=== PATIENT | male | born 1940 | race African-American/Black ===

== ENCOUNTER 2024-09-03 05:50 | Inpatient (IN) | payer OTHER ==
[2024-09-03] VITALS (10 sets, daily range): BP systolic 131–168; BP diastolic 53–104; PULSE 70–80; RESP 12–22; TEMP 36.2–36.418; O2SAT 97–100
[~2024-09-03] VITALS: Ht 177.8 cm; Wt 79.8 kg
[2024-09-03] MEDS ORDERED: ALBUTEROL (0.083%) 2.5MG/3ML NEB HHN STA (06:01)
[2024-09-03 06:28] LABS: BG BASE EXCESS 6.8 mmol/L (-2.0-3.0); BG CARBOXYHEMOGLOBIN 1.1 % (0.5-1.5); BG DEOXYHEMOGLOBIN 2.3 % (0.0-5.0); BG FRACTION INSPIRED OXYGEN 30; BG HCO3 ACT 32.5 mmol/L (21.0-28.0); BG METHEMOGLOBIN 0.3 % (0.5-1.5); BG OXYGEN SATURATION 97.7 % (94.0-98.0); BG OXYHEMOGLOBIN 96.3 % (94.0-98.0); BG PCO2 53.5 mmHg (35.0-48.0); BG PH 7.402 (7.350-7.450); BG PO2 102.9 mmHg (83.0-108.0); BG SAMPLE SITE RIGHT RADIAL; BG TOTAL HEMOGLOBIN 9.4 g/dL (13.5-17.5); BG VENT MODE MASK - BIPAP
[2024-09-03] MEDS: CEFTRIAXONE 1GM/50ML 50 ML IV ONE (06:34)
[2024-09-03] MEDS: FUROSEMIDE 40MG/4ML VIAL IV ONE (06:34)
[2024-09-03] MEDS: METHYLPREDNISOLONE SOD SUCC 125MG/2ML (ACT-O-VIAL) IV STA (06:34)
[2024-09-03 06:35] LABS: CHLORIDE 97 mEq/L (98-107); POTASSIUM 5.7 mEq/L (3.5-5.1); SODIUM 135 mEq/L (136-145)
[2024-09-03 06:36] LABS: CALCIUM 8.4 mg/dL (8.7-10.4); CARBON DIOXIDE 30 mEq/L (21-32)
[2024-09-03] MEDS: NITROGLYCERIN OINT 1GM/INCH UDPKT TD ONE (06:36)
[2024-09-03 06:41] LABS: CREATININE 2.1 mg/dL (0.6-1.3); GLUCOSE 387 mg/dL (70-105); UREA NITROGEN BLOOD 64 mg/dL (9-23)
[2024-09-03 06:53] LABS: BASOPHILS % 0.2 % (0.0-2.0); HEMATOCRIT. 28.8 % (42.0-52.0); HEMOGLOBIN. 9.2 g/dL (14.0-18.0); LYMPHOCYTES % 17.2 % (20.0-50.0); MEAN CORPUSCULAR HEMOGLOBIN 29.6 pg (28.0-32.0); MEAN CORPUSCULAR HGB CONC 31.9 g/dL (31.0-37.0); MEAN CORPUSCULAR VOLUME 92.7 fL (80.0-94.0); MONOCYTES % 9.7 % (2.0-8.0); NEUTROPHILS % 72.9 % (40.0-76.0); PLATELET 115 x1000/uL (130-400); RED BLOOD CELL COUNT 3.11 mill/uL (4.7-6.1); WHITE BLOOD COUNT 2.1 x1000/uL (4.5-11.0)
[2024-09-03 06:57] LABS: INR 0.9; PROTHROMBIN TIME 10.3 sec (9.6-11.0)
[2024-09-03 07:04] LABS: ETHANOL BLOOD < 10 mg/dL (<10); TROPONIN I HIGH SENSITIVITY 43 ng/L (3.0-53)
[2024-09-03 09:40] LABS: POTASSIUM 4.4 mEq/L (3.5-5.1)
[2024-09-03 09:41] LABS: CALCIUM 7.9 mg/dL (8.7-10.4)
[2024-09-03 09:47] LABS: TROPONIN I HIGH SENSITIVITY 38 ng/L (3.0-53)
[2024-09-03] MEDS ORDERED: DOCUSATE SODIUM 100MG CAPSULE PO PRN (11:15)
[2024-09-03] MEDS ORDERED: MAGNESIUM/ALUMINUM HYDROXIDE/SIMETHICONE 30ML UDC PO PRN (11:15)
[2024-09-03] MEDS ORDERED: ACETAMINOPHEN 325MG TABLET PO PRN (11:15)
[2024-09-03] MEDS ORDERED: AZITHROMYCIN 500 MG in DEXT 5% WATER 250 ML IV SCH (11:15)
[2024-09-03] MEDS ORDERED: IPRATROPIUM/ALBUTEROL 0.5-3(2.5)MG/3ML NEB HHN PRN (11:15)
[2024-09-03] MEDS ORDERED: DEXTROSE 50% WATER 50ML SYRINGE IV PRN (11:15)
[2024-09-03] MEDS ORDERED: ONDANSETRON HCL 4MG/2ML INJ IV PRN (11:15)
[2024-09-03] MEDS: INSULIN REGULAR (HUMULIN R) 1000UNITS/10ML VIAL SUBCUT NR (11:34)
[2024-09-03] MEDS: BLOOD SUGAR DIAGNOSTIC STRIP TEST SCH (13:27)
[2024-09-03] MEDS: INSULIN GLARGINE 100 UNITS/ML SUBCUT SCH (13:44)
[2024-09-03] MEDS: INSULIN LISPRO 100 UNITS/ML SUBCUT SCH (13:44)
[2024-09-03] MEDS: AMLODIPINE 5MG TABLET PO SCH (13:45)
[2024-09-03] MEDS: IPRATROPIUM/ALBUTEROL 0.5-3(2.5)MG/3ML NEB HHN SCH (14:20)
[2024-09-03] MEDS: HYDRALAZINE HCL 50MG TABLET PO SCH (14:29)
[2024-09-03] MEDS: METHYLPREDNISOLONE SOD SUCC 125MG/2ML (ACT-O-VIAL) IV SCH (14:29)
[2024-09-03] MEDS: IPRATROPIUM BROMIDE (0.02%) 0.5MG/2.5ML NEB HHN STA (15:27)
[2024-09-03] MEDS: DOXYCYCLINE 100MG/100ML 100 ML IV SCH (15:28)
[2024-09-03] MEDS ORDERED: HYDRALAZINE 20MG/ML VIAL IV PRN (18:00)
[2024-09-03] MEDS: GUAIFENESIN 200MG/10ML SUGAR FREE UDC PO PRN (19:48)
[2024-09-03] MEDS: APIXABAN 2.5 MG TABLET PO SCH (20:37)
[2024-09-04] VITALS (12 sets, daily range): BP systolic 143–159; BP diastolic 56–81; PULSE 70–77; RESP 10–21; TEMP 36.2–36.7; O2SAT 97–100
[2024-09-04 07:00] LABS: THYROID STIMULATING HORMONE 0.29 uIU/mL (0.55-4.78)
[2024-09-04 07:13] LABS: FERRITIN 331 ng/mL (22-322)
[2024-09-04 07:14] LABS: FOLIC ACID (FOLATE) SERUM 19.96 ng/mL (>5.38)
[2024-09-04 07:15] LABS: VITAMIN B12 SERUM 1807 pg/mL (211-911)
[2024-09-04] MEDS: FUROSEMIDE 40MG/4ML VIAL IV SCH (08:19)
[2024-09-04] MEDS: PANTOPRAZOLE 40MG DR TABLET PO SCH (08:19)
[2024-09-04] MEDS: INSULIN GLARGINE 100 UNITS/ML SUBCUT SCH (11:51)
[2024-09-04 13:36] LABS: HEMATOCRIT. 28.6 % (42.0-52.0); HEMOGLOBIN. 8.9 g/dL (14.0-18.0); MEAN CORPUSCULAR HEMOGLOBIN 28.3 pg (28.0-32.0); MEAN CORPUSCULAR VOLUME 91.4 fL (80.0-94.0); MEAN PLATELET VOLUME 9.7 fl (7.4-10.4); PLATELET 113 x1000/uL (130-400); RED BLOOD CELL COUNT 3.13 mill/uL (4.7-6.1)
[2024-09-04 14:25] LABS: DIFFERENTIAL COMMENT 1
[2024-09-04] MEDS ORDERED: TAMS-11 (16:18)
[2024-09-04] MEDS ORDERED: ATOR40TA70 (16:18)
[2024-09-04] MEDS ORDERED: PRED10TA (16:18)
[2024-09-04] MEDS ORDERED: GABA-1180 (16:18)
[2024-09-04] MEDS ORDERED: ALBU10.7 (16:18)
[2024-09-04] MEDS ORDERED: EMPA25TA (16:18)
[2024-09-04] MEDS ORDERED: APIX5TAB (16:18)
[2024-09-04] MEDS ORDERED: LEFL10TA19 (16:18)
[2024-09-04] MEDS ORDERED: DULO60CA64 (16:18)
[2024-09-04] MEDS ORDERED: OSEL6SUS7 (16:18)
[2024-09-04] MEDS ORDERED: INSU100V3 (16:18)
[2024-09-04] MEDS ORDERED: METO-385 (16:18)
[2024-09-04] MEDS ORDERED: HYDR50TA39 (16:18)
[2024-09-04] MEDS ORDERED: OMEP20CA14 (16:18)
[2024-09-04] MEDS ORDERED: ALLO100T (16:18)
[2024-09-04] MEDS ORDERED: IPRA3AMP9 (16:18)
[2024-09-04] MEDS ORDERED: GLIP5TAB22 (16:18)
[2024-09-04] MEDS ORDERED: ALBU2.5V13 (16:18)
[2024-09-04] MEDS ORDERED: INSU100V49 (16:18)
[2024-09-04] MEDS ORDERED: AMLO5TAB88 (16:18)
[2024-09-04] MEDS ORDERED: FURO20TA4 (16:18)
[2024-09-04 22:05] LABS: ANISOCYTOSIS 1+; PLATELET ESTIMATE DECREASED
== END 2024-09-04 19:00 | disposition home or self-care (01) | DRG 291 ==
LOC: ER 06:06 → 5EST 10:40
PROVIDERS: ADMIT Hospitalist; ATTEND Hospitalist
PROC: 5A09357 Assistance with Respiratory Ventilation, Less than 24 Consecutive Hours, Continuous Positive Airway Pressure (ICD-10-PCS; principal; 2024-09-03)
DX: I13.0 Hypertensive heart and chronic kidney disease with heart failure and stage 1 through stage 4 chronic kidney disease, or unspecified chronic kidney disease (principal); J96.01 Acute respiratory failure with hypoxia; J96.02 Acute respiratory failure with hypercapnia; J44.1 Chronic obstructive pulmonary disease with (acute) exacerbation; N17.9 Acute kidney failure, unspecified; I50.9 Heart failure, unspecified; I27.81 Cor pulmonale (chronic); I27.29 Other secondary pulmonary hypertension; D64.9 Anemia, unspecified; Z20.822 Contact with and (suspected) exposure to COVID-19; D69.6 Thrombocytopenia, unspecified; N18.9 Chronic kidney disease, unspecified; E11.22 Type 2 diabetes mellitus with diabetic chronic kidney disease; N40.0 Benign prostatic hyperplasia without lower urinary tract symptoms; I48.91 Unspecified atrial fibrillation; Z99.81 Dependence on supplemental oxygen; Z79.01 Long term (current) use of anticoagulants; Z79.4 Long term (current) use of insulin; Z79.84 Long term (current) use of oral hypoglycemic drugs; Z79.899 Other long term (current) drug therapy; Z87.891 Personal history of nicotine dependence; Z88.0 Allergy status to penicillin; Z88.5 Allergy status to narcotic agent; Z95.0 Presence of cardiac pacemaker
CPT/HCPCS: 36415; 36600; 71045; 80048; 80061; 80320; 82375; 82607; 82728; 82746; 82805; 82962; 83036; 83605; 83880; 84145; 84443; 84484; 85025; 87426; 87804; 93005; 93970; 94070; 94640; 94660; 94664; 97166; 98960; 99291; A4606; J0696; J1815; J1940; J2919; J3490; G0480